=== PATIENT | female | born 1940 | race Caucasian/White ===

== ENCOUNTER → 2018-08-24 | Outpatient (CLI) | payer OTHER ==
[~2018-08-24] MED LIST: ALLOPURINOL 30300 M1 PO; AMLODIPINE BESY10 MG PO; ASPIR-TRIN325 MG PO; ASPIRIN325 PO; ATORVASTATIN CA40 MG PO; COLACE100 MG PO; ELESTAT5 ML OP; HYDROCODONE-AP1 EAC6 PO; LOSARTAN-HCTZ1 EAC3 PO; METOPROLOL SUCC50 MG PO; MOBIC15 MG PO; OXYCODONE HCL 55 MG PO; RESTASIS1 EACH OPHTHALMIC; VOLTAREN GEL 1100 G2 TOP; XARELTO10 M1 PO
== END ==
LOC: M.ULTRA 16:30
DX: M71.21 Synovial cyst of popliteal space [Baker], right knee (principal); M79.89 Other specified soft tissue disorders; I10 Essential (primary) hypertension

== ENCOUNTER 2019-05-10 07:03 | Inpatient (IN) | payer OTHER ==
[2019-05-03 08:56] LABS: ABSOLUTE EOSINOPHILS 0.3 thou/uL (0.0-0.7); ABSOLUTE LYMPHOCYTES 1.5 thou/uL (0.8-5.3); ABSOLUTE MONOCYTES 0.6 thou/uL (0.0-1.2); ABSOLUTE NEUTROPHILS 4.6 thou/uL (1.6-8.1); BASOPHILS 0.5 %; EOSINOPHILS 4.9 %; HEMATOCRIT 39.3 % (37.0-47.0); HEMOGLOBIN 13.7 gm/dL (12.0-15.0); LYMPHOCYTES 20.7 %; MCH 30.3 pg (26.0-34.0); MCHC 34.9 g/dL (28.0-37.0); MCV 86.9 fL (80.0-100.0); MONOCYTES 8.6 %; MPV 7.9 fl. (7.2-11.1); NUCLEATED RBCS 0 /100WBC; PLATELET COUNT* 233 thou/uL (150-400); POLYS 65.3 %; RBC 4.53 mil/uL (4.20-5.00); RDW-CV 14.6 % (10.5-14.5); WBC 7.1 thou/uL (4.0-11.0)
[2019-05-03 09:04] LABS: APTT 25.1 Seconds (25.0-31.3); PROTIME 10.7 Seconds (9.20-11.50)
[2019-05-03 09:13] LABS: ALBUMIN 3.7 g/dL (3.4-5.0); CALCIUM 9.3 mg/dL (8.5-10.1); CREATININE 1.4 mg/dL (0.6-1.3); POTASSIUM 3.6 mmol/L (3.5-5.1); TOTAL BILIRUBIN 0.8 mg/dL (<0.1-1.0); TOTAL PROTEIN 7.3 g/dL (6.4-8.2)
[2019-05-03 10:24] LABS: ESR (SEDRATE) 16 mm/hr (0-30)
[2019-05-04 11:09] LABS: GLYCOHEMOGLOBIN (HGB A1C) 5.9 % (4.8-5.6)
[~2019-05-10] VITALS: Ht 162.6 cm; Wt 87.1 kg
--- NOTE | ~2019-05-10 | OP ---
[facility] [address] [place] [address] OPERATIVE REPORT Name: ILON CISNEROS Room: [address] IN [facility]#: [id number] Admission: 05/10/19 Attend Phys: Jenny Wu Discharge: Date of : 40 Report #: [id number] THIS REPORT FOR: //name// CC: Ricardo Strange DICTATED BY: Tahir Hutchison DO DATE OF SERVICE: 05/10/2019 PREOPERATIVE DIAGNOSIS: Left hip severe degenerative joint disease. POSTOPERATIVE DIAGNOSIS: Left hip severe degenerative joint disease. OPERATION PERFORMED: Left total hip arthroplasty. IMPLANTS: MicroPort total hip system was utilized with the following components. 1. A size 3 Profemur and Gladiator plasma classic stem with varus neck. 2. A size 36 mm Biolox delta femoral head with +3.5 neck length. 3. A size 54 mm Prime Biofoam quad shell. 4. A size 36 mm ultrahigh molecular weight polyethylene liner. 5. Two cancellous self-tapping bone screws, 25 mm and 35 mm in length. SURGEON: Ricardo Sheppard DO STRUCTURAL TEST ENGINEER: Tahir Hutchison DO SECOND STRUCTURAL TEST ENGINEER: Arias Fierro DO. ESTIMATED BLOOD LOSS: 400 mL with 150 transfused via Cell Saver. ANESTHESIA: General plus local infiltration of anesthetic. ANTIBIOTICS: 900 mg IV clindamycin given preoperatively. DRAINS: None. SPECIMENS: None. COMPLICATIONS: None. DISPOSITION: Stable to PACU to joint and spine floor. OPERATIVE INDICATIONS: The patient is a pleasant 79-year-old female who had [address] [place] [address] OPERATIVE REPORT Name: LION CISNEROS Yannick Room: [address] IN [facility]#: [id number] Admission: 05/10/19 Attend Phys: Jenny Wu Discharge: Date of : 40 Report #: [id number] been followed in orthopedic clinic regarding her longstanding left hip pain. X-rays did confirm severe degenerative joint disease with loss of joint space, subchondral sclerosis and osteophytic lipping. The patient had begun to walk with a limp and was relying on a walker for ambulation. She tried conservative treatment with rest, activity modifications, physical therapy and injections as well as anti-inflammatory medications by mouth. Despite trying all these things, she continued to have severe pain, which is limiting her activities and decreasing quality of life. Therefore, we did discuss a left total hip arthroplasty. Risks, indications, and treatment alternatives were reviewed and the patient was in agreement with proceeding with today's elective operation. DESCRIPTION OF PROCEDURE: The patient was identified in the preoperative holding area. Her questions were answered. The left hip was confirmed to be the operative side by the patient, marked. She was turned to the operating suite and placed on the operating table in supine position where general anesthesia was introduced. She was then placed in the lateral decubitus position with the operative side up. While in the peg board, the patient was secured with the pegs, making sure that all bony prominences were well padded. Axillary pad was also placed. The left hip region was then sterilely prepped and draped in the usual fashion. A timeout was performed to confirm their safety checklist had been completed and all the members in the OR were in agreement. Standard anterolateral approach was marked out over the lateral aspect of the hip. Sharp dissection was then carried down through the skin and subcutaneous tissue down to the level of the tensor fascia. This was sharply dissected and a Charnley retractor was placed. The bursal tissue was removed from the gluteus musculature. The gluteus medius muscle tendon was then and a tenotomy was performed of the gluteus medius anterior fibers. This was reflected free from the underlying capsular tissue. H-capsulotomy was then performed with electrocautery. The leg was then brought into flexion and external rotation and the femoral head was dislocated from the acetabulum and delivered from the wound. We used the opening broach to confirm the position of our neck cut 1 cm proximal to the lesser trochanter. The reciprocating saw was then used to perform the neck cut. The femoral head was inspected and found to have significant loss of cartilage and osteophytic formation, this was then removed and placed on the back table. The leg was then taken back from the bag and placed on the table and the proximal femur was retracted out of the way and the interposed pulvinar was removed with a rongeur. The labral remnant was excised. We then performed sequential reaming of the acetabulum. The trial 54 mm acetabulum was then placed and found to have good fit. There was excellent bleeding bone. Therefore, did proceed with placement of the final 54 mm shell. This was then impacted into position, making sure that the appropriate abduction and anteversion was maintained. Two of the screw holes were then drilled and appropriate size screws were placed in the posterior superior quadrant of the acetabulum. The high wall liner was then placed with the high wall placed superiorly and this was then impacted into position and confirmed to be locked in. Retractors were then removed and [place] [address] OPERATIVE REPORT Name: LION CISNEROS Room: [address]#: [id number] Admission: 05/10/19 Attend Phys: Jenny Wu Discharge: Date of : 40 Report #: [id number] femur. The box osteotome was used to remove the cancellous bone. We then entered the proximal femur and reamed the bone distally on hand. Sequential broaching was then begun up to a size 3, which did give excellent fit and fill of the femur. We then trialed multiple sizes of neck and head lengths. Intraoperative x-rays were taken to confirm appropriate positioning of all of the implants and that there was appropriate positioning of the acetabulum. The size 3 femur was found to have excellent fit and fill within the femur. Therefore, the hip was then once again dislocated, we found that with the standard size neck length, there was some laxity. Therefore, we did proceed with the +3.5 mm neck length with a varus neck and once again trialed, then found to have excellent stability. Therefore, we did proceed with this as our final implant sizes. The hip was then redislocated and a trial implants were removed. We then impacted the final stem position ____ maybe 1 or 2 mm proud from ____ previously set. We proceeded with final +3.5 ceramic head and impacted this onto the Solomon taper. The hip was then reduced and found to have excellent stability and full range of motion. A layered closure was then began with #1 Vicryl suture on the capsular layer followed by #1 Vicryl in a [id number] fashion on the tensor fascia willam around the tensor fascia. Subcutaneous layer was then reapproximated with 2-0 Vicryl suture followed by a running 3-0 subcuticular layer with the Stratafix suture. Skin glue was then applied to the incision. This was allowed to dry and then a sterile Mepilex bandage was applied. The patient was awakened from general anesthetic and returned to the PACU in stable condition with no apparent complications. Sponge and needle counts were correct x 2. By: [id number] Sheppard DO /dee
--- NOTE | ~2019-05-10 | CON ---
[address] [address] CONSULTATION Name: LION CISNEROS Room: [address] IN ..#: [id number] Admission: 05/10/19 Attend Phys: Jenny Wu Discharge: 05/16/19 Date of : 40 Report #: [id number] THIS REPORT FOR: //name// CC: Ricardo Bose DICTATED BY: Marisela Edwards [facility] DATE OF SERVICE: 05/16/2019 PRIMARY CARE PHYSICIAN: Johan Maria DO Please note at the time of this dictation, the patient was seen and physically examined by myself. REASON FOR CONSULTATION: Elevated LFTs. HISTORY OF PRESENT ILLNESS: This is a 79-year-old female who electively came in for left total hip arthroscopy after falling and conservative treatment was not working. She is postop, it was noted that she had elevated liver enzymes at that time and they have been normal in the past that she has been aware of. No one has ever told her that they have been abnormal. She denies any complaints at this time and is planning on being discharged to the [facility] for further rehabilitation later today. ALLERGIES: PENICILLIN. MEDICATIONS FROM HOME: Include aspirin, naproxen, allopurinol, losartan, Lipitor, metoprolol, amlodipine, and Restasis eye drops. PAST MEDICAL HISTORY: Hypertension, left total knee replacement, macular degeneration, cataracts. PAST SURGICAL HISTORY: Left hip, back surgery, and hysterectomy. FAMILY HISTORY: Questionable mother with breast and possible uterine cancer. SOCIAL HISTORY: Denies any alcohol, tobacco or illegal drug use. REVIEW OF SYSTEMS: Twelve-point review of systems is essentially negative except what is mentioned in the HPI. PHYSICAL EXAMINATION: VITAL SIGNS: Temperature 36.9, pulse 91, respirations 16, blood pressure 96/41. [place] [address] CONSULTATION Name: LION CISNEROS Yannick Room: [address]#: [id number] Admission: 05/10/19 Attend Phys: Jenny Wu Discharge: 05/16/19 Date of : 40 Report #: [id number] HEART: Regular rate and rhythm. LUNGS: Clear. ABDOMEN: Soft, positive bowel sounds in all 4 quadrants with no masses or tenderness noted. LABORATORY DATA: Hemoglobin 11.3, white count is 6.8, platelets 250. ESR is 95. PT is 10.1. INR is 1. Total bilirubin 0.9, alk phos 167, ALT 92, AST is 82. IMPRESSION: 1. Elevated LFTs. 2. Status post left hip arthroscopy. 3. Family history, questionable mother breast and uterine cancer. PLAN: 1. We will obtain labs before she leaves, acute hepatitis panel, GGTP, TATE, and AMA. 2. Discussed with the patient. We will do further workup on this as an outpatient when she comes to the office in 4-6 weeks. Thank you for allowing us to participate in this patient's care. Please do not hesitate to call with any questions in regard to this consult. By: [id number] Tejada MD /nt
[~2019-05-10 07:03] MED LIST changes: +ALEVE220 MG PO
[2019-05-10 07:59] VITALS: BP 179/75
[2019-05-10 13:03] VITALS: BP 136/52
--- NOTE | 2019-05-10 16:01 | NUR ---
ASSUMED CARE OF PT AROUND 1235. PT ADMITTED POST OP LT HIP. ICE TO LEFT HIP. PT TOLERATING REGULAR DIET. IVF INFUSING. SL AFTER ONE LITER. ORDERS OBTAINED FOR PAIN MANAGEMENT. NO OTHER CONCERNS AT THIS TIME. CLWR. WCTM.
[2019-05-10 16:38] VITALS: BP 130/49
[2019-05-10 19:30] VITALS: BP 131/55
[2019-05-11] VITALS (7 sets, daily range): BP systolic 107–140; BP diastolic 28–54
[2019-05-11 03:56] LABS: HEMATOCRIT 34.1 % (37.0-47.0); HEMOGLOBIN 11.4 gm/dL (12.0-15.0); MCH 29.5 pg (26.0-34.0); MCHC 33.6 g/dL (28.0-37.0); MCV 87.9 fL (80.0-100.0); MPV 8.2 fl. (7.2-11.1); RBC 3.87 mil/uL (4.20-5.00); RDW-CV 14.2 % (10.5-14.5); WBC 11.4 thou/uL (4.0-11.0)
[2019-05-11 04:07] LABS: CALCIUM 8.6 mg/dL (8.5-10.1); CREATININE 1.4 mg/dL (0.6-1.3); MAGNESIUM 1.6 mg/dL (1.8-2.4); POTASSIUM 4.2 mmol/L (3.5-5.1)
--- NOTE | 2019-05-11 06:30 | NUR ---
PT ALERT AND ORIENTED. VSS ON 2L NC. PT HAS BEEN UNABLE TO VOID SINCE AFTER SURGERY FROM YESTERDAY. PT BLADDER SCANNED AND STRAIGHT CATH PERFORMED TWICE THIS SHIFT. DR DRISCOLL ORDERED FLOMAX, FIRST DOSE GIVEN LAST NIGHT. PT UP TO BSC WITH ONE ASSIST, GAIT BELT AND WALKER. CHAMPION ORDERED FOR RETENSION. SCHLD PAIN MEDS GIVEN. HOURLY ROUNDINGS MADE. CALL LIGHT WITHIN REACH. WILL CONTINUE TO MONITOR.
--- NOTE | 2019-05-11 12:14 | NUR ---
cm completed initial assessment to discuss d/c planning. pt a&ox4. lives home w/spouse, Dalia, whom pt says is a very good caregiver, "very patient." dalia present at time of assessment. pt has hx w/hh and okay to use the same company. no hx w/snf. has walker, shower seat and seat riser. pt is active and independent, drives. the goal is to d/c to home. cm to remain available to assist as needed.
--- NOTE | 2019-05-11 12:30 | NUR ---
PRESCRIPTION FOR ELIQUIS CALLED IN WRITTEN TO PT.'S PHARMACY-[facility] ON [facility]-[phone]. WILL CALL BACK FOR COPAY AMOUNTS.
--- NOTE | 2019-05-11 13:26 | NUR ---
cm faxed referral to [facility] at [phone].
--- NOTE | 2019-05-11 15:35 | NUR ---
SPOKE WITH PT., [facility] SAID THEY DO NOT HAVE PT'S INSURANCE INFORMATION. SHE SAID SHE USES THE ONE ON [place] [address], NOT [facility], STATED ON STATUS BOARD. CALLED [facility] [place] [address] [phone]. SPOKE WITH CATY. HE TRANSFERRED PRESCRIPTION TO THEIR PHARMACY. COPAY FOR ELIQUIS IS $21. PT.REQUESTED A COUPON. GAVE HER $10 COPAY CARD. SHE WAS APPRECIATIVE.
--- NOTE | 2019-05-11 18:36 | NUR ---
PT A&Ox4. VITALS STABLE. IV PATENT. PAIN CONTROLLED WITH OXY IR. HIP PRECAUTIONS MAINTAINED. TEDS, ICE PACK AND SCDs IN PLACE. DRESSING IS CLEAN, DRY AND INTACT. CHAMPION FOR RETENTION. UP WITH 1 USING GAITBELT AND WALKER. FALL PRECAUTIONS IN PLACE. CALL LIHGT WITHIN REACH. WILL CONTINUE TO MONITOR.
[2019-05-12 04:24] LABS: HEMATOCRIT 27.5 % (37.0-47.0); MCH 29.8 pg (26.0-34.0); MCHC 33.9 g/dL (28.0-37.0); MPV 8.2 fl. (7.2-11.1); RBC 3.13 mil/uL (4.20-5.00)
[2019-05-12 04:37] LABS: CALCIUM 8.2 mg/dL (8.5-10.1); CREATININE 1.8 mg/dL (0.6-1.3); MAGNESIUM 1.6 mg/dL (1.8-2.4); POTASSIUM 3.8 mmol/L (3.5-5.1)
[2019-05-12 05:25] LABS: HEMOGLOBIN 9.3 gm/dL (12.0-15.0)
--- NOTE | 2019-05-12 05:51 | NUR ---
PT ALERT ALERT AND VSS ON RA. HOWVER, TOWARDS MIDDLE OF SHIFT. O2 SATS WERE BETWEEN 89- 90. PT WAS PTU ON [place] NC, PT SATTING IN THE 90'S. CHAMPION INTACT AND DRAINED. PAIN MEDS GIVEN THIS SHOFT, NOTING RELEIF. Q2 TURN. FALL PRECAUTION IN PLACE. MG+ REPLACED PER PROTOCOL. CALL LIGHT WITHIN REAHCH. HOURLY ROUNDINGS MADE. WILL CONTINUE TO [facility].
[2019-05-12 12:08] LABS: GLYCOHEMOGLOBIN (HGB A1C) 5.9 % (4.8-5.6)
[2019-05-12 16:21] VITALS: BP 130/73
--- NOTE | 2019-05-12 16:24 | NUR ---
ASSUMED CARE OF PATIENT AT 0700. ALERT AND ORIENTED X 4. VITAL SIGNS STABLE ON 2L O2 NASAL CANULA. AFEBRILE. IV PATENT AND SALINE LOCKED. PAIN BEING MANAGED WITH PO MEDICATION. DENIES NAUSEA AT THIS TIME. CHAMPION PATENT AND DRAINING YELLOW URINE. DRESSING TO LEFT HIP C/D/I. TOLERATED PHYSICAL THERAPY. FALL PRECAUTIONS IN PLACE AND BED ALARM ON. HOURLY ROUNDS MAINTAINED THROUGHOUT THE SHIFT. CALL LIGHT WITHIN REACH. NURSING WILL CONTINUE TO MONITOR.
[2019-05-12 22:00] VITALS: BP 115/44
--- NOTE | 2019-05-13 05:32 | NUR ---
PT ALERT AND ORIENTED. VSS. TEMP WAS 1O1.1 DURING ASSESSMENT. TYLENOL WAS GIVEN. TEMP WENT DOWN TO 98.8. MEDS GIVEN PER EMAR. PT SLEPT MOST OF SHIFT. POSSIBLE DC TODAY. CALL LIGHT WITHIN REACH. HOURLY ROUNDINGS MADE. WILL CONTINUE TO MONITOR.
[2019-05-13 08:00] VITALS: BP 137/90
[2019-05-13 13:32] LABS: ABSOLUTE EOSINOPHILS 0.1 thou/uL (0.0-0.7); ABSOLUTE LYMPHOCYTES 0.7 thou/uL (0.8-5.3); ABSOLUTE MONOCYTES 0.7 thou/uL (0.0-1.2); ABSOLUTE NEUTROPHILS 7.9 thou/uL (1.6-8.1); BASOPHILS 0.2 %; HEMATOCRIT 31.2 % (37.0-47.0); HEMOGLOBIN 10.8 gm/dL (12.0-15.0); MCH 30.2 pg (26.0-34.0); MCHC 34.5 g/dL (28.0-37.0); MCV 87.4 fL (80.0-100.0); MONOCYTES 7.9 %; MPV 8.6 fl. (7.2-11.1); NUCLEATED RBCS 0 /100WBC; PLATELET COUNT* 174 thou/uL (150-400); POLYS 83.9 %; RBC 3.57 mil/uL (4.20-5.00); RDW-CV 13.9 % (10.5-14.5); WBC 9.4 thou/uL (4.0-11.0)
[2019-05-13 13:45] LABS: ALBUMIN 2.6 g/dL (3.4-5.0); CALCIUM 9.4 mg/dL (8.5-10.1); CREATININE 1.6 mg/dL (0.6-1.3); POTASSIUM 3.9 mmol/L (3.5-5.1); TOTAL BILIRUBIN 1.2 mg/dL (<0.1-1.0); TOTAL PROTEIN 6.9 g/dL (6.4-8.2)
[2019-05-13 16:55] VITALS: BP 113/80
[2019-05-13 17:19] LABS: ESR (SEDRATE) 95 mm/hr (0-30)
--- NOTE | 2019-05-13 19:00 | NUR ---
ASSUMED CARE OF PATIENT AT 0700. ALERT AND ORIENTED X 4. VITAL SIGNS STABLE ON 2L 02 NASAL CANULA. IV PATENT AND SALINE LOCKED. PAIN BEING MANAGED WITH PO MEDICATION. DENIES NAUSEA. UP AND AMBULATED IN HALLWAY WITH PT. FALL PRECAUTIONS IN PLACE AND BED ALARM ON. HOURLY ROUNDS MAINTAINED THROUGHOUT THE SHIFT. CALL LIGHT WITHIN REACH. HOURLY ROUNDS MAINTAINED THROUGHOUT THE SHIFT. CALL LIGHT WITHIN REACH.
[2019-05-13 21:10] VITALS: BP 133/37
[2019-05-14] VITALS: BP 118/61
[2019-05-14 04:00] VITALS: BP 117/47
--- NOTE | 2019-05-14 05:57 | NUR ---
PATIENT HAS SLEPT WELL THROUGHOUT THE NIGHT. VSS ON 2L 02 VIA NASAL CANNULA. NO C/O PAIN DURING THE NIGHT. MEDICATIONS GIVEN ORDERED AND CHARTED. DRESSING TO LEFT HIP IS C/D/I AND WEDGE IN PLACE. CHAMPION TO DEPENDENT DRAINAGE WITH YELLOW URINE OUTPUT. IV IN LEFT FOREARM-SL. PATIENT INSTRUCTED TO USE CALL LIGHT WHEN NEEDING ASSISTANCE. HOURLY ROUNDS MADE. WILL CONTINUE WITH PLAN OF CARE AND NURSING TO MONITOR.
[2019-05-14 08:00] VITALS: BP 121/52
[2019-05-14 11:11] LABS: URINE BILIRUBIN NEGATIVE (Negative); URINE BLOOD 1+ (Negative); URINE CLARITY CLEAR; URINE COLOR YELLOW; URINE GLUCOSE-RANDOM NEGATIVE (Negative); URINE KETONES NEGATIVE (Negative); URINE LEUKOCYTES-REFLEX NEGATIVE (Negative); URINE NITRITE-REFLEX NEGATIVE (Negative); URINE PROTEIN NEGATIVE (Negative); URINE SPECIFIC GRAVITY <= 1.005 (1.005-1.030); URINE UROBILINOGEN 0.2 E.U./dl (0.2-1.0)
[2019-05-14 11:35] LABS: SQUAMOUS 0-3 Few /LPF (0-3); URINE WBC-REFLEX 0-5 Rare /HPF (0-5)
--- NOTE | 2019-05-14 11:35 | NUR ---
PHONE BANKER INFORMED OF NEED TO FAX SKILLED REFERRAL TO #[address] [facility], AND (IF NEEDED) #2 [facility]. D/C HIRED HELP SPOKE TO PHOEBE WITH ADMISSIONS AT [facility] TO INFORM OF THE SNF REFERRAL AND FAXED THE PATIENT'S CLINICAL INFO AND PT/OT NOTES. D/C HIRED HELP ALSO INFORMED PHOEBE THAT THE PATIENT MAY BE READY TO D/C TOMORROW SO SHE MAY BEGIN THE INSURANCE AUTH PROCESS. CM WILL REMAIN AVAILABLE TO ASSIST AND FOLLOW NEEDED.
[2019-05-14 11:36] LABS: BACTERIA-REFLEX 1-9 Few /HPF (None Seen); URINE RBC 0-2 Rare /HPF (0-2)
[2019-05-14 11:38] LABS: CRYSTALS None Seen /LPF (None Seen); HYALINE CASTS 0-3 Few /LPF (None Seen); MUCUS None Seen strn/LPF (None Seen)
--- NOTE | 2019-05-14 12:07 | NUR ---
CM DISCUSSED SNF OPTIONS W/PT. PT SNF OF CHOICE IS [facility]. PT SIGNED "CHOICE OF VENDOR" FORM. D/C ROCKET [employer]ENT[employer]DE[employer], TO FAX REFERRAL TO [facility].
[2019-05-14 16:00] VITALS: BP 144/68
--- NOTE | 2019-05-14 17:07 | NUR ---
PT A&Ox4. VITALS STABLE. IV PATENT. PAIN CONTROLLED WITH TRAMADOL, NORCO, AND OXY IR. JAYCEE PATENT. DENIED NAUSEA. UP WITH 1 USING GAITBELT AND WALKER. WORKED WELL WITH THERAPY. LOOKING TO GOING TO A SNF. FALL PRECAUTIONS IN PLACE. CALL LIGHT WITHIN REACH. WILL CONTINUE TO MONITOR.
[2019-05-14 20:15] VITALS: BP 103/42
[2019-05-15] VITALS: BP 121/54
[2019-05-15 04:00] VITALS: BP 120/54
--- NOTE | 2019-05-15 06:33 | NUR ---
PATIENT HAS SLEPT WELL THROUGHOUT THE NIGHT. VSS ON 2L 02 VIA NASAL CANNULA. PAIN WELL CONTROLLED. MEDICATIONS GIVEN ORDERED AND CHARTED. DRESSING TO LEFT HIP IS C/D/I AND HIP PRECAUTIONS AND WEIGHT BEARING STATUS MAINTAINED. CHAMPION TO DEPENDENT DRAINAGE WITH YELLOW URINE OUTPUT. PATIENT IS UP WITH ASSIST X 1-2 WITH GAITBELT AND WALKER. IV IN LEFT FOREARM-SL. PATIENT INSTRUCTED TO USE CALL LIGHT WHEN NEEDING ASSISTANCE. HOURLY ROUNDS MADE. WILL CONTINUE WITH PLAN OF CARE AND NURSING TO MONITOR.
[2019-05-15 07:41] VITALS: BP 108/50
[2019-05-15 11:37] LABS: ABSOLUTE EOSINOPHILS 0.1 thou/uL (0.0-0.7); ABSOLUTE LYMPHOCYTES 0.5 thou/uL (0.8-5.3); ABSOLUTE MONOCYTES 0.9 thou/uL (0.0-1.2); ABSOLUTE NEUTROPHILS 5.3 thou/uL (1.6-8.1); BASOPHILS 0.5 %; EOSINOPHILS 2.2 %; HEMATOCRIT 30.6 % (37.0-47.0); HEMOGLOBIN 10.3 gm/dL (12.0-15.0); LYMPHOCYTES 7.2 %; MCH 29.7 pg (26.0-34.0); MCHC 33.8 g/dL (28.0-37.0); MCV 87.7 fL (80.0-100.0); MONOCYTES 12.4 %; MPV 7.6 fl. (7.2-11.1); NUCLEATED RBCS 0 /100WBC; POLYS 77.7 %; RBC 3.49 mil/uL (4.20-5.00); RDW-CV 13.9 % (10.5-14.5); WBC 6.8 thou/uL (4.0-11.0)
[2019-05-15 11:38] LABS: PLATELET COUNT* 250 thou/uL (150-400)
[2019-05-15 11:48] LABS: ALBUMIN 2.2 g/dL (3.4-5.0); CALCIUM 9.3 mg/dL (8.5-10.1); CREATININE 1.3 mg/dL (0.6-1.3); TOTAL PROTEIN 6.5 g/dL (6.4-8.2)
[2019-05-15 16:30] VITALS: BP 126/55
--- NOTE | 2019-05-15 16:35 | NUR ---
PT A&Ox4. VITALS STABLE. DRESSING IS CLEAN, DRY AND INTACT. UP WITH 1 USING GAITBELT AND WALKER. PAIN CONTROLLED WITH OXY IR. DENIED NAUSEA. WORKED WELL WITH THERAPY. WAITING FOR INSURANCE AUTH FOR [facility]. FALL PRECAUTIONS IN PLACE. CALL LIGHT WITHIN REACH. WILL CONTINUE TO MONITOR.
[2019-05-15 19:30] VITALS: BP 117/51
[2019-05-16 00:39] VITALS: BP 117/58
[2019-05-16 04:04] VITALS: BP 122/49
--- NOTE | 2019-05-16 05:04 | NUR ---
PATIENT HAS REMAINED ALERT AND ORIENTED X 4 THROUGHOUT THE SHIFT AND RESTING QUIETLY ON HOURLY ROUNDS. PATIENT VOIDING TRIAL PROGRESSING WELL WITH 300 ML VOIDS. UP TO BSC WITH MIN ASSIST OF ONE, GAIT BELT AND WALKER. NEEDS CUEING FOR SAFETY, ESPECIALLY FOR HAND PLACEMENT. O2 RE-APPLIED THIS AM FOR ROOM AIR SAT 88%. RT FOLLOWING. DRESSING LEFT HIP CLEAN AND DRY. AT PATIENT REQUEST USING ABDUCTION WEDGE RATHER THAN PROGRESSING TO REG PILLOW TO MAINTAIN HIP PRECAUTIONS. ADEQUATE PAIN MANAGEMENT FOR REST OVERNIGHT WITH SCHEDULED TRMADOOL. PASSING GAS. NO BM. CONTINUE TO MONITOR.
[2019-05-16 07:30] VITALS: BP 96/41
[2019-05-16 08:34] VITALS: BP 96/41
[2019-05-16 08:46] LABS: CALCIUM 8.6 mg/dL (8.5-10.1); POTASSIUM 4.3 mmol/L (3.5-5.1); TOTAL BILIRUBIN 0.9 mg/dL (<0.1-1.0)
--- NOTE | 2019-05-16 11:00 | NUR ---
CALL FROM [facility]. THEY HAVE RECEIVED AUTHORIZATION FOR PT.TO GO TO A SKILLED BED THERE. DANIELLE LOPEZ WILL PICK HER UP BETWEEN 1-1:30. NOTIFIED JAILENE,U.S. SHE WILL LET RN KNOW. SHE WILL COPY CHART TO GO WITH PT. ARI BUCHANAN TO CALL REPORT TO [facility]. GI SAW PT.PRIOR TO DISCHARGE. SHE CAN FOLLOW UP WITH THEM AFTER SHE DISCHARGES FROM SNF. LABS ORDERED FOR TOMORROW AT [facility]. FAXED ORDERS TO [facility] [phone]. PT.INFORMED OF TRANSFER AND TIME.
[2019-05-16] MEDS ORDERED: ELIQUIS2.5 MG PO (11:53)
[2019-05-16] MEDS ORDERED: NORCO 5-325 TA1 EAC1 PO (11:54)
[2019-05-16] MEDS ORDERED: OXYCODONE HCL 55 MG PO (12:01)
--- NOTE | 2019-05-16 13:47 | NUR ---
ASSUMED CARE OF PATIENT AT APPROX 0730. ALERT AND OREINTED X4. ASSESSMENT COMPLETED AND CHARTED. VSS ON 2 LITERS 02. PAIN MANAGED WITH ORAL PAIN MEDICATIONS. PATIENT WORKED WITH THERAPIES TODAY AND PROGRESSED TOWARD GOALS. PATIENT DISCHARGED TO [facility] AT 1330 WITH ALL PERSONAL BELONGINGS, PRESCRIPTIONS AND DISCHARGE INFORMATION.
[2019-05-17 16:06] LABS: HEPATITIS B SURFACE AG Negative (Negative)
[2019-05-18 16:06] LABS: ANA INTERPRETATION Negative (Negative)
== END 2019-05-16 13:30 | disposition short-term general hospital (02) | DRG 469 ==
LOC: M.TBA 07:03 → M.ORTHSURG 07:03 → M.PRE 08:05 → M.ORTHSURG 12:33 → M.PRE 14:35 → M.ORTHSURG 05-16 13:30
PROVIDERS: Internal Medicine; Nurse Practitioner Adult Health; Orthopaedic Surgery; ADMIT Internal Medicine
PROC: 0SRB03Z Replacement of Left Hip Joint with Ceramic Synthetic Substitute, Open Approach (ICD-10-PCS; principal; 2019-05-10)
DX: M16.12 Unilateral primary osteoarthritis, left hip (principal); N17.0 Acute kidney failure with tubular necrosis; E87.1 Hypo-osmolality and hyponatremia; I12.0 Hypertensive chronic kidney disease with stage 5 chronic kidney disease or end stage renal disease; R74.8 Abnormal levels of other serum enzymes; H35.30 Unspecified macular degeneration; R73.9 Hyperglycemia, unspecified; N18.3 Chronic kidney disease, stage 3 (moderate); Z98.42 Cataract extraction status, left eye; Z90.710 Acquired absence of both cervix and uterus; Z98.41 Cataract extraction status, right eye; Z79.82 Long term (current) use of aspirin; Z79.899 Other long term (current) drug therapy; Z88.0 Allergy status to penicillin; Z82.49 Family history of ischemic heart disease and other diseases of the circulatory system; Z80.8 Family history of malignant neoplasm of other organs or systems; Z83.6 Family history of other diseases of the respiratory system